=== PATIENT | female | born 1955 | race Two or more races ===

== ENCOUNTER 2023-02-28 23:03 | Emergency (ER) | payer OTHER ==
[~2023-02-28] VITALS: Ht 167.6 cm; Wt 90.0 kg
[2023-02-28 23:40] VITALS: PULSE 16; RESP 14; O2SAT 93
[2023-03-01] VITALS: TEMP 97.8
[2023-03-01] MEDS ORDERED: HYDROcodone-ACET 5/325MG TAB PO ONE (04:30)
[2023-03-01 08:00] VITALS: PULSE 61; RESP 14; O2SAT 97
[2023-03-01 11:00] VITALS: BP 108/52; RESP 16; O2SAT 94
[2023-03-01 12:00] VITALS: PULSE 61
== END 2023-03-01 13:25 | disposition home or self-care (01) ==
LOC: EDBD 23:03 → ER 23:09
DX: T17.328A Food in larynx causing other injury, initial encounter (principal); G35 Multiple sclerosis; Z88.8 Allergy status to other drugs, medicaments and biological substances
CPT/HCPCS: 70490; 71250; 74176